=== PATIENT | male | born 1965 | race Caucasian/White ===

== ENCOUNTER → 2020-03-17 | Outpatient (CLI) | payer OTHER ==
[2020-03-17 09:37] LABS: ABSOLUTE EOSINOPHILS # (AUTO) 0.4 10^3/uL (0.0-0.6); ABSOLUTE LYMPHOCYTES (AUTO) 1.9 10^3/uL (0.5-4.7); ABSOLUTE MONOCYTES (AUTO) 0.8 10^3/uL (0.1-1.4); ABSOLUTE NEUT (AUTO) 6.1 10^3/uL (1.7-8.2); BASOPHILS % (AUTO) 0.4 % (0-2); EOSINOPHILS % (AUTO) 4.7 % (0-6); HEMATOCRIT 45.4 % (37.9-51.0); HEMOGLOBIN 15.6 g/dL (13.5-17.0); LYMPHOCYTES % (AUTO) 20.5 % (13-45); MEAN CORPUSCULAR HGB CONC 34.3 g/dL (32.0-36.0); MEAN CORPUSCULAR VOLUME 93 fl (80-97); MONOCYTES % (AUTO) 8.7 % (3-13); PLATELET COUNT 281 10^3/uL (150-450); RED BLOOD COUNT 4.87 10^6/uL (4.35-5.55); RED CELL DISTRIBUTION WIDTH 13.2 % (11.5-14.0); SEGMENTED NEUTROPHILS % (AUTO) 65.7 % (42-78); TOTAL CELLS COUNTED % (AUTO) 100 %; WHITE BLOOD COUNT 9.3 10^3/uL (4.0-10.5)
[2020-03-17 10:03] LABS: ALBUMIN 4.9 g/dL (3.5-5.0); ALKALINE PHOSPHATASE 64 U/L (38-126); ANION GAP 8 (5-19); ASPARTATE AMINO TRANSFERASE 60 U/L (17-59); BILIRUBIN,DIRECT 0.1 mg/dL (0.0-0.4); BLOOD UREA NITROGEN 15 mg/dL (7-20); CALCIUM 9.9 mg/dL (8.4-10.2); CARBON DIOXIDE 32 mmol/L (22-30); CHLORIDE 98 mmol/L (98-107); CHOLESTEROL 222.75 mg/dL (0-200); GLUCOSE 99 mg/dL (75-110); TOTAL PROTEIN 8.5 g/dL (6.3-8.2); TRIGLYCERIDES 88 mg/dL (<150)
[2020-03-17 10:14] LABS: DIRECT LDL 96 mg/dL (<100)
== END ==
LOC: OD 08:44
PROVIDERS: ATTEND Internal Medicine
DX: I10 Essential (primary) hypertension (principal); E78.5 Hyperlipidemia, unspecified; R53.83 Other fatigue
CPT/HCPCS: 36415; 80053; 80061; 84443; 85025

== ENCOUNTER 2020-04-19 05:30 | Day surgery (SDC) | payer OTHER ==
[2020-04-14 11:28] LABS: HEMATOCRIT 40.4 % (37.9-51.0); HEMOGLOBIN 14.1 g/dL (13.5-17.0); MEAN CORPUSCULAR HEMOGLOBIN 32.3 pg (27.0-33.4); MEAN CORPUSCULAR HGB CONC 34.8 g/dL (32.0-36.0); MEAN CORPUSCULAR VOLUME 93 fl (80-97); PLATELET COUNT 261 10^3/uL (150-450); RED BLOOD COUNT 4.36 10^6/uL (4.35-5.55); RED CELL DISTRIBUTION WIDTH 12.5 % (11.5-14.0); WHITE BLOOD COUNT 7.2 10^3/uL (4.0-10.5)
--- NOTE | 2020-04-14 15:26 | EKG REPORT ---
SEVERITY:- BORDERLINE ECG - SINUS RHYTHM : Confirmed by: Doug Burger MD 14-Apr-2020 15:25:05
[~2020-04-19 05:30] MED LIST: ACETAMINOPHEN 325 MG TABLET PO PRN; CEFAZOLIN 1 GM/D5W RTU 1 GM/50 ML RTUPB IV ONE; CEFAZOLIN 1 GM/D5W RTU 1 GM/50 ML RTUPB IV PRN; LACTATED RINGERS 1000 ML IV PRN; LIDOCAINE 0.5% INJ-PF (5 MG/ML) 50 ML SDV SUBCUT PRN
[2020-04-19 06:56] LABS: INTERNATIONAL RATION (INR) 0.95; PROTHROMBIN TIME 12.9 SEC (11.4-15.4)
[2020-04-19 06:57] LABS: PARTIAL THROMBOPLASTIN TIME 35.3 SEC (23.5-35.8)
[2020-04-19] MEDS ORDERED: MORPHINE SULFATE 10 MG/ML INJ ONE (07:02)
[2020-04-19] MEDS ORDERED: PROPOFOL INJ 200 MG/20 ML VIAL IV ONE (07:02)
[2020-04-19] MEDS ORDERED: MIDAZOLAM 2 MG/2 ML INJ ONE (07:02)
[2020-04-19] MEDS ORDERED: FENTANYL CITRATE INJ/PF 250 MCG/5 ML AMPULE ONE (07:02)
[2020-04-19] MEDS ORDERED: BUPIVACAINE HCL 0.25 % INJ/PF (2.5 MG/1 ML) 30 ML VIAL ONE ×2 (07:06→10:22)
[2020-04-19] MEDS ORDERED: BUPIVACAINE INJ/PF LIPOSOME/PF 266 MG/20 ML SDV ONE ×2 (07:07→10:22)
[2020-04-19] MEDS ORDERED: MEPERIDINE HCL/PF INJ 25 MG/1 ML DISP.SYRIN IV PRN (11:19)
[2020-04-19] MEDS ORDERED: PROMETHAZINE HCL INJ 25 MG/1 ML VIAL IV PRN (11:19)
[2020-04-19] MEDS ORDERED: DIPHENHYDRAMINE HCL 50 MG/ML VIAL IV PRN (11:19)
[2020-04-19] MEDS ORDERED: MORPHINE SULFATE 10 MG/ML INJ IV PRN (11:19)
[2020-04-19] MEDS ORDERED: FENTANYL CITRATE INJ/PF 100 MCG/2 ML AMPUL IV PRN (11:19)
--- NOTE | 2020-04-19 11:48 | Operative Report ---
Operative Report DATE OF SURGERY: 04/19/20 PREOPERATIVE DIAGNOSIS: 1. Prolapsing umbilical hernia with overlying threaten ed skin. 2. Overweight POSTOPERATIVE DIAGNOSIS: Same OPERATION: Umbilical herniorrhaphy, open, with Ventralex ST 8 cm hernia patch in the external peritoneal position SURGEON: PETER ALLAN PHOTOVOLTAIC SOLAR CELL DESIGNER: MEAGAN OTOOLE ANESTHESIA: GA TISSUE REMOVED OR ALTERED: Redundant, threatened skin; fragments of hernia sac: All disposed of COMPLICATIONS: None ESTIMATED BLOOD LOSS: Minimal INTRAOPERATIVE FINDINGS: See below PROCEDURE: The patient was taken to the preop holding area to the main operating room where general anesthesia was induced. Arms were abducted, abdomen previously shaved of hair, then prepped and draped with Betadine Surgical plan surgical timeout were conducted. The findings were significant for a moderate to large prolapsing umbilical hernia with overlying redundant, threatened skin with excoriation. There was no yordan ulceration, or infection. Markings were made on the skin above around and below the umbilicus for planned or herniorrhaphy. Skin was anesthetized with quarter percent Marcaine. The skin was now cut above and below the umbilicus, and around the the redundant umbilical skin in a vertically oriented elliptical fashion. The depth the dissection was taken right through the, subcutaneous tissue, and hernia sac into the free peritoneal space. The tissue was disposed of. We trimmed some of the redundant hernia sac free from the edge of the fascia. We now opened up the subcutaneous tissue in a circumferential fashion to expose the anterior fascial surface using electrocautery and blunt dissection. I now the fascia from the retroperitoneal edge in a circumferential fashion, using gentle electrocautery and blunt index finger dissection. This freed up the peritoneum in a circumferential fashion so that we could now closed the peritoneum primarily. The peritoneum was closed horizontally with a running 2-0 Vicryl suture. We now brought onto the field a non- [address] hernia patch. We now placed stitches at the 12, 3, 6, and 9:00 positions using a 0 PDS suture, going through the fascia, then through the reinforcing ring of the mesh and then back up through the fascia. The mesh was positioned into place in the extraperitoneal compartment. It was splayed out smoothly. We now brought up the sutures and secured the knots tightly to the exterior surface of the fascia. I now closed the fascial defect in the middle horizontally with a running 0 PDS suture. The subcutaneous tissue and umbilicus were reconstructed with a combination of 2-0 and 3-0 Vicryl. Skin was approximated with benzoin, and Steri-Strips. Bulky 4 x 4's were placed into the reconstructed umbilicus to create a bolster and tape applied. Abdominal binder applied. Patient tolerated the procedure well, extubated, taken to recovery in stable condition.
[2020-04-19] MEDS ORDERED: OXYCODONE-ACETAMINOPHEN 5-325 MG TABLET PO PRN (11:58)
--- NOTE | 2020-04-19 11:58 | Discharge Summary ---
Discharge Summary (SDC) - Discharge Final Diagnosis: umbilical hernia Date of Surgery: 04/19/20 Discharge Date: 04/19/20 Condition: Good Forms: ASU Anesthesia D/C Instruction, Discharge POC-Surgical Service Treatment or Instructions: [facility] [address] [place], [place] [address] Discharge Instructions: Open Abdominal Procedures (Hernia, Bowel Surgery) 1.General Information: a. DO NOT DRIVE a car or operative machinery for 1-2 weeks or as long as taking Narcotic pain medication. b. DO NOT consume alcohol, tranquilizers, sleeping medication, or any non- prescribed medication for 24 hours unless approved by your doctor or as long as taking pain medication. c. DO NOT make important decisions or sign any important papers for the first 24 hours after surgery. d. When discharged home the same day as surgery have a responsible person with you the first night. 2.Activity Restriction: 8 weeks; a. Avoid heavy lifting (> 10-15 lbs), straining abdominal muscles and sports, mowing lawn, vacuum alley cleaner and bending over a lot. b. Walking is important to avoid blood clots in the legs and deep breathing can prevent pneumonia. c. If it fine to go for walks, up and down steps, and ride in a car. 3.Treatment: a. You may remove dressing or Band-Aids the day after surgery and shower then daily is fine, but you should not bathe in a tub or go swimming for 2 weeks. b. If you have paper strips (steri strips) on the skin, do not remove them as they will fall off in the coming weeks. Pat them dry after your shower. Sutures beneath the paper strips dissolve. If you have skin sutures or metal celso they will be removed on your follow up visit. They may also get wet with a shower. c. Do not use oils, powders, or lotion on your incision. 4.Medications: a. You may take prescription tablets for pain if needed, one every 6 hours (_Toradol_). b. Do not take additional NSAIDs with Toradol. You may take Tylenol as needed. c. You may resume all normal medications unless a change is specified by your doctors. d. Antibiotic Therapy if needed ( NONE) 5.Diet: a. If going home the same day as surgery start with clear liquids, and if you do well then advance to normal foods low inf fat and protein. Smaller portion size may be whyte the first night. b. When discharged after hospital stay you may resume a normal diet. 6.Notify Physician If: a. Pain is not relieved by pain medication b. Persistent nausea and vomiting c. Chills, fever (above 101) d. Persistent bleeding or swelling at the operative site e. Unable to urinate for 6-8 hours f. Increased redness, drainage, or foul smelling discharge from incision 7. Follow Up Care: a. Please call our office to schedule an appointment with your doctor for 2 weeks. In the event of any postoperative problems or questions you may call our office during business hours or the On-Call surgeon through the assembly operator at [facility]. [facility] [phone] [facility] [phone] (Ask for the surgeon regional dedicated truck driver) b. I understand the instructions for my postoperative care as described kayli noel and a copy has been given to me. Witness Patient/Significant Other Date Prescriptions: Ketorolac Tromethamine [Toradol 10 mg Tablet] 10 mg PO Q6HP PRN #20 tablet PRN Reason: Referrals: PETER WATKINS MD [ACTIVE STAFF] - 05/02/20 11:00 am Discharge Diet: As Tolerated Discharge Activity: Balance Activity w/Rest, No Lifting Over 10 Pounds, No Lifting/Push/Pulling, Walk Frequently Report the Following to Your Physician Immediately: Nausea, Vomiting, Increase in Pain, Fever over 101 Degrees, Unusual Bleeding, Redness, Warmth, Increased Soreness, Drainage-Foul Smelling
[2020-04-19] MEDS ORDERED: OXYCODONE-ACETAMINOPHEN 5-325 MG TABLET ONE (12:24)
[2020-04-19 13:43] VITALS: BP 134/85
[2020-04-19] MEDS ORDERED: DEXAMETHASONE SOD PHOSPHATE INJ 4 MG/1 ML VIAL ONE (14:28)
[2020-04-19] MEDS ORDERED: ROCURONIUM BROMIDE INJ 50 MG/5 ML VIAL IV ONE (14:28)
[2020-04-19] MEDS ORDERED: SUCCINYLCHOLINE CHLORIDE INJ 200 MG/10 ML VIAL ONE (14:28)
[2020-04-19] MEDS ORDERED: NEOSTIGMINE METHYLSULFATE 10 MG/10 ML VIAL ONE (14:28)
[2020-04-19] MEDS ORDERED: ONDANSETRON HCL INJ/PF 4 MG/2 ML SDV ONE (14:28)
[2020-04-19] MEDS ORDERED: GLYCOPYRROLATE 1 MG/5 ML VIAL ONE (14:28)
[2020-04-19] MEDS ORDERED: LIDOCAINE 2% INJ-PF (20 MG/ML) 2 ML AMPUL ONE (14:28)
== END 2020-04-19 13:25 | disposition home or self-care (01) ==
LOC: OROUT 05:30
PROVIDERS: ATTEND Surgery
DX: K42.9 Umbilical hernia without obstruction or gangrene (principal); Z03.818 Encounter for observation for suspected exposure to other biological agents ruled out; I10 Essential (primary) hypertension; Z79.899 Other long term (current) drug therapy
CPT/HCPCS: 93005; 36415 ×2; 84132; 85027; 85610; 85730; 93010; 00750; 49585; C1781; U0003; J2250; J0690; J3490 ×3; J1100; J3010; J2710; J0330; J2405; J2704; C9290; C9803; 750; 87635; J2270